=== PATIENT | female | born 1990 | race Caucasian/White ===

== ENCOUNTER → 2017-02-21 | Outpatient (CLI) | payer MEDICAID ==
[~2017-02-21] MED LIST: MOTRIN800 MG PO; PERCOCET 5-3251 EACH PO; PRENATAL 1+1)(P1 TAB PO; VALTREX (NON-F500 MG PO
[2017-02-21 11:46] LABS: BASOPHIL % 0.5 %; EOSINOPHIL # 0.2 K/uL (0.0-0.5); EOSINOPHIL % 2.1 %; HEMATOCRIT 37.3 % (33.0-46.0); HEMOGLOBIN 12.5 g/dL (11.0-15.0); LYMPHOCYTE # 1.4 K/uL (0.8-4.0); LYMPHOCYTE % 15.8 %; MCH 30.1 pg (27.0-34.0); MCHC 33.5 gm/dL (32.0-36.5); MCV 89.9 fl (83.0-98.0); MONOCYTE # 0.8 K/uL (0.0-1.0); MONOCYTE % 8.5 %; MPV 11.2 fl (9.4-12.4); NEUTROPHIL # (ANC) 6.5 K/uL (1.8-7.8); NEUTROPHIL % 72.6 %; NRBC % 0 /100WBC (0-0.00); PLATELET COUNT 303 K/uL (150-450); RBC 4.15 M/uL (3.50-5.00)
[2017-02-21 11:49] LABS: BARBITURATE NEGATIVE (NEGATIVE); COCAINE NEGATIVE (NEGATIVE)
[2017-02-21 11:51] LABS: OPIATES NEGATIVE (NEGATIVE)
[2017-03-02 16:26] LABS: AMPHETAMINE NEGATIVE (NEGATIVE)
[2017-03-02 16:27] LABS: IMMATURE GRANULOCYTE % 0.5 %; WBC 8.9 K/uL (4.0-11.0)
== END ==
LOC: LKCL 11:16
PROVIDERS: Family Medicine
DX: Z34.81 Encounter for supervision of other normal pregnancy, first trimester (principal)
CPT/HCPCS: G0145